=== PATIENT | male | born 1980 | race American Indian/Alaskan Native ===

== ENCOUNTER 2017-01-09 08:14 | Emergency (ER) | payer SELFPAY ==
[2017-01-09] MEDS ORDERED: BOOSTRIX IM ONE (09:41)
[2017-01-09] MEDS ORDERED: BACTRIM DS PO ONE (09:41)
[2017-01-09] MEDS ORDERED: MOTRIN PO ONE (09:41)
[2017-01-09] MEDS ORDERED: KEFLEX PO ONE (09:42)
--- NOTE | 2017-01-09 10:13 | XRay Report ---
Left index finger 2 views: Findings: No fracture periosteal reaction or soft tissue calcification. No radiopaque foreign body. Impression: No bony or articular abnormality left index finger.
--- NOTE | 2017-01-09 10:57 | Emergency Department Report ---
Entered by DEVON WHITNEY, acting as scribe for JUAN LUIS ROMERO PA. - General Chief Complaint: Wound/Laceration Stated Complaint: LT HAND INDEX FINGER LAC Time Seen by Provider: 01/09/17 09:42 Source: patient Mode of arrival: Ambulatory Limitations: No Limitations - History of Present Illness Initial Comments: 36 y/o male presents to the ED c/o laceration to the index finger of left hand that occurred 4 days ago. Associated symptoms include pain but he denies fever and chills. Patient states he was hatching bushes when he accidentally cut his finger on hedge clippers. He "saw meat hanging out." No alleviating or aggravating symptoms. NKDA. Patient does not know when his last TDAP was. Onset/Timin -: days(s) Location: other (index finger of left hand) Extremity Location: Left: Hand (index finger), Right: Wrist Place: home Patient Tetanus UTD: No Context: sharp object use Associated Symptoms: pain. denies: other (fever and chills) - Related Data Previous Rx's Medication Instructions Recorded Last Taken Type Cephalexin [Keflex] 500 mg PO BID #14 capsule 01/09/17 Unknown Rx Ibuprofen [Motrin] 600 mg PO Q8H PRN #20 tablet 01/09/17 Unknown Rx Sulfamethoxazole/Trimethoprim 1 each PO BID #14 tablet 01/09/17 Unknown Rx [Bactrim DS TAB] Allergies Allergy/AdvReac Type Severity Reaction Status Date / Time No Known Allergies Allergy Unverified 01/09/17 08:16 ED Review of Systems Comment: All other systems reviewed and negative Constitutional: denies: chills, fever Eyes: denies: eye pain, eye discharge, vision change ENT: denies: ear pain, throat pain Respiratory: denies: cough, shortness of breath, wheezing Cardiovascular: denies: chest pain, palpitations Endocrine: no symptoms reported Gastrointestinal: denies: abdominal pain, nausea, diarrhea Genitourinary: denies: urgency, dysuria Musculoskeletal: as per HPI. denies: back pain, joint swelling, arthralgia Skin: other (laceration to index finger of left hand and pain) Neurological: denies: headache, weakness, paresthesias Psychiatric: denies: anxiety, depression Hematological/Lymphatic: denies: easy bleeding, easy bruising ED Past Medical Hx - Past Medical History Previous Medical History?: No - Surgical History Additional Surgical History: ASCILLES SURGERY - Social History Smoking Status: Never Smoker Substance Use Type: None - Medications Home Medications: Home Medications Medication Instructions Recorded Confirmed Last Taken Type Cephalexin [Keflex] 500 mg PO BID #14 capsule 01/09/17 Unknown Rx Ibuprofen [Motrin] 600 mg PO Q8H PRN #20 tablet 01/09/17 Unknown Rx Sulfamethoxazole/Trimethoprim 1 each PO BID #14 tablet 01/09/17 Unknown Rx [Bactrim DS TAB] ED Physical Exam - General Limitations: No Limitations General appearance: alert, in no apparent distress - Head Head exam: Present: atraumatic, normocephalic - Eye Eye exam: Present: normal appearance, PERRL, EOMI Pupils: Present: normal accommodation - ENT ENT exam: Present: normal exam, normal orophraynx, mucous membranes moist, TM's normal bilaterally, normal external ear exam - Neck Neck exam: Present: normal inspection, full ROM. Absent: tenderness - Respiratory Respiratory exam: Present: normal lung sounds bilaterally. Absent: wheezes, rales, rhonchi - Cardiovascular Cardiovascular Exam: Present: regular rate, normal rhythm, normal heart sounds. Absent: systolic murmur, diastolic murmur, rubs, gallop - GI/Abdominal GI/Abdominal exam: Present: soft, normal bowel sounds. Absent: tenderness, guarding, rebound - Extremities Exam Extremities exam: Present: normal inspection, full ROM. Absent: tenderness - Expanded Upper Extremity Exam Left Shoulder Exam: Present: normal inspection, full ROM Upper Arm exam: Present: normal inspection, full ROM Elbow exam: Present: normal inspection, full ROM Forearm Wrist exam: Present: normal inspection, full ROM Hand Wrist exam: Present: tenderness (left distal index finger laceration at distal tuft about 1.5-2cm semicircular) Hand L/R Front: 1 - Positive: laceration Neuro motor exam: Present: wrist extension intact, thumb opposition intact, thumb IP flexion intact, thumb adduction intact, fingers 2-5 abduction intact Vascular: Present: normal capillary refill, radial pulse, brachial pulse - Back Exam Back exam: Present: normal inspection, full ROM. Absent: tenderness, CVA tenderness (R), CVA tenderness (L), muscle spasm, paraspinal tenderness, vertebral tenderness, rash noted - Neurological Exam Neurological exam: Present: alert, oriented X3 - Psychiatric Psychiatric exam: Present: normal affect, normal mood - Skin Skin exam: Present: other (laceration to index finger of left hand) ED Course Vital Signs 01/09/17 01/09/17 08:17 10:05 Temperature 98 F Pulse Rate 61 Respiratory 18 16 Rate Blood Pressure 114/67 O2 Sat by Pulse 98 Oximetry ED Medical Decision Making - Medical Decision Making A/P: Left distal index fingertip laceration 1-patient states that the injury occurred 5 days ago on Wednesday, patient is out of the window for sutures. Area cleaned with iodine and saline. Xeroform gauze applied to the site of laceration which appears to be granulating already. Then wrapped with gauze wrap and finger splint applied. 2-tetanus updated today 3-x-ray shows no fracture at distal tuft. On clinical exam there is no abscess or felon or paronychia on examination of the finger or fingertip. Distal sensation is intact to light touch and proprioception and capillary refill is less than 1 second, patient is able to range at MCP PIP and DIP, flexion and extension intact 4-I provided patient with referral to orthopedics 5- Bactrim and Keflex twice a day 7 days. I advised patient to return to the ED for any pus drainage significant swelling foul odor or erythema at the site of the injury. Patient stated that he understood my instructions ED Disposition Clinical Impression: Finger laceration Qualifiers: Encounter type: initial encounter Finger: index finger Damage to nail status: without damage Foreign body presence: without foreign body Laterality: left Qualified Code(s): S61.211A - Laceration without foreign body of left index finger without damage to nail, initial encounter Disposition: TO HOME OR SELFCARE Is pt being admited?: No Does the pt Need Aspirin: No Condition: Stable Instructions: Finger Laceration (ED), Laceration (ED), Acute Wound Care (ED) Prescriptions: Cephalexin [Keflex] 500 mg PO BID #14 capsule Ibuprofen [Motrin] 600 mg PO Q8H PRN #20 tablet PRN Reason: Pain Sulfamethoxazole/Trimethoprim [Bactrim DS TAB] 1 each PO BID #14 tablet Referrals: PATIENCE JUAREZ MD [Staff Physician] - 3-5 Days Forms: Work/School Release Form(ED) Time of Disposition: 10:56 This documentation as recorded by the CHELO quinones ELIZABETH,accurately reflects the service I personally performed and the decisions made by ,JUAN LUIS ROMERO, PA.
[2017-01-09 11:04] VITALS: BP 121/71
== END 2017-01-09 11:04 | disposition home or self-care (01) ==
LOC: ED 08:14
DX: S61.211A Laceration without foreign body of left index finger without damage to nail, initial encounter (principal); W45.8XXA Other foreign body or object entering through skin, initial encounter; Y93.89 Activity, other specified; Y99.8 Other external cause status; Y92.009 Unspecified place in unspecified non-institutional (private) residence as the place of occurrence of the external cause
CPT/HCPCS: 90471; 90715